=== PATIENT | male | born 1985 | race Caucasian/White ===

== ENCOUNTER 2020-08-26 08:10 | Outpatient (REF) | payer SELFPAY ==
[2020-08-26 13:21] LABS: HCT 41.8 % (40.0-50.0); HGB 13.9 g/dL (13.5-17.5); MCH 30.8 pg (27.0-33.0); MCHC 33.3 % (32.0-36.0); MCV 92.7 fL (80-95); MPV 13.1 fL (8.0-11.0); Platelet Count 232 10^3/uL (130-400); RBC 4.51 10^6/uL (4.36-5.78); RDW 11.9 % (11.8-14.1); RDW-SD 40.2 fL; WBC 5.22 10^3/uL (4.4-10.8)
[2020-08-26 13:38] LABS: ALT 61 U/L (16-63); AST 30 U/L (15-37); Albumin 3.8 g/dL (3.4-5.0); Alkaline Phosphatase 92 U/L (46-116); Anion Gap 7.3 mmol/L (3-11); BUN 14 mg/dL (7-18); Bilirubin, Total 0.4 mg/dL (0.2-1.0); CO2 28.7 mmol/L (21.0-32.0); CREATININE 0.9 mg/dL (0.70-1.30); Calcium 9.5 mg/dL (8.5-10.1); Calculated LDL 137 mg/dL (<100); Chloride 103 mmol/L (98-107); Cholesterol 215 mg/dL (<200); Glucose 115 mg/dL (74-106); HDL Cholesterol 33 mg/dL (40-60); Potassium 4.7 mmol/L (3.5-5.1); Sodium 139 mmol/L (136-145); TSH (W/Ref FT4) 1.11 uIU/mL (0.36-3.74); Total Protein 7.6 g/dL (6.4-8.2); Triglyceride 229 mg/dL (<150)
[2020-08-26 13:46] LABS: Hemoglobin A1C 6.2 % (<5.7)
== END 2020-08-26 08:11 | disposition home or self-care (01) ==
LOC: NCHCN 08:10
PROVIDERS: PCP Internal Medicine; Visit Provider Family Medicine
DX: Z00.00 Encounter for general adult medical examination without abnormal findings (principal); I10 Essential (primary) hypertension; E78.5 Hyperlipidemia, unspecified; E66.9 Obesity, unspecified
CPT/HCPCS: 80053; 80061; 85027; 83036; 84443

== ENCOUNTER 2021-09-09 11:13 | Emergency (ER) | payer SELFPAY ==
[2021-09-09 11:21] VITALS: BP 145/102; PULSE 69; RESP 16; TEMP 36.8; O2SAT 99
--- NOTE | 2021-09-09 12:15 | ED.GENADUL_ITS ---
Discharge Plan Disposition Patient Disposition: HOME Condition: Stable Discharge Details Clinical Impression: Laceration of finger of right hand, Multiple lacerations Primary Care Provider: Hubert Molina ED Provider: Le Barry Home Meds and New Rx's Prescriptions: New cephalexin 500 mg capsule 500 mg PO TID 5 Days Qty: 15 0RF Discharge Instructions Instructions: Finger Laceration (ED) Additional Instructions: Keep wound clean and dry. Cover wound with bandage if risk of contamination. Otherwise you can keep the wound open to air if resting at home to allow edges to dry and heal. A prescription for antibiotics has been sent electronically to your pharmacy to take as directed until finished. Return to the emergency department in 7 to 10 days for suture removal. Return immediately to the emergency department if you develop any worsening or new concerning symptoms such as fever, increased redness, pain or swelling. Discharge Data Discharge Physician: Le Barry Medical Decision Making 36-year-old [id number] male presents with right finger laceration sustained while using a chainsaw at home prior to arrival. Patient has 2 cm linear with jagged edges lacerations noted to the palmar aspect of the base of the second and fifth fingers which extends through the dermis. There is no obvious exposed tendon or nerve involvement. He is otherwise neurovascular intact without motor. He also has skin tears noted to the palmar surfaces of the third and fourth fingers. Advised patient to obtain x-ray to rule out fracture or foreign body but he declined stating he does not have insurance and would rather not incur the cost. Risks of and disability due to missed or incomplete diagnoses and patient understands and demonstrates capacity make decisions. His fingers were anesthetized with local anesthesia and closed with nylon sutures. Area was dressed with bacitracin and nonadherent dressing. He was given a a tetanus and prophylactic antibiotics. Advised to return to the ED in 7 to 10 days for suture removal. Usual and customary return precautions given prior to discharge. Medical Records Medical records reviewed: Yes I reviewed the patient's medical records. HPI General Mode of arrival: ambulatory . Date/Time Provider Initiated Documentation: 09/09/21 11:31 . Limitations to Documentation: no limitations . Information obtained by: patient . HPI Narrative: Patient is a 36-year-old male presents with laceration to his right hand while using a chainsaw at home prior to arrival. Patient states he is left-handed and he was using a chainsaw which cut through his right second through fifth fingers. He is unsure of his tetanus status. He denies any other injuries. Related Data Home Medications Medication Instructions Recorded Confirmed cephalexin 500 mg capsule 500 mg PO TID 5 days #15 caps 09/09/21 Previous Rx's Medication Instructions Recorded cephalexin 500 mg capsule 500 mg PO TID 5 days #15 caps 09/09/21 Allergies Allergy/AdvReac Type Severity Reaction Status Date / Time pollen extracts Allergy Intermediate Unverified 09/09/21 11:24 General Stated Complaint: Laceration DANNY: 3 Review of Systems All systems reviewed & are unremarkable except as noted in HPI and below Constitutional Constitutional: Denies chills, Denies excessive sweating, Denies fatigue, Denies fever(s), Denies weakness and Denies weight loss Eyes Eyes: Reports system reviewed and no additional complaints, except as documented and Denies blurry vision ENT Ears, Nose, Mouth, and Throat: Denies vertigo, Denies dizziness, Denies otalgia, Denies nasal congestion, Denies sore throat and Denies throat swelling Cardiovascular Cardiovascular: Denies chest pain, Denies syncope, Denies rapid heart rate and Denies dyspnea Respiratory Respiratory: Denies chest congestion, Denies cough, Denies pain on inspiration and Denies dyspnea Gastrointestinal Gastrointestinal: Denies abdominal pain, Denies diarrhea and Denies vomiting Genitourinary Genitourinary: Denies hematuria, Denies dysuria and Denies flank pain Musculoskeletal Musculoskeletal: Denies back pain and Denies joint swelling Integumentary/Breasts Skin/Breast: Denies lesions and Denies rash Neurologic Neurologic: Denies behavioral changes, Denies confusion, Denies vertigo, Denies dizziness, Denies syncope, Denies localized weakness and Denies weakness Psychiatric Psychiatric: Denies behavioral changes, Denies confusion and Denies depression Endocrine Endocrine: Denies excessive sweating and Denies fatigue Hematologic/Lymphatic Hematologic/Lymphatic: Denies easy bruising and Denies lymphadenopathy Allergic/Immunologic Allergic/Immunologic: Denies throat swelling PFSH All Active Problems (Updated 09/09/21 @ 14:01 by Le Barry DO) Laceration of finger of right hand (Acute) Multiple lacerations (Acute) Medical History (Updated 09/09/21 @ 14:01 by Le Barry DO) HTN (hypertension) Surgical History (Updated 09/09/21 @ 12:15 by Le Barry DO) No significant past surgical history Social History Smoking/Tobacco Use Status: Never Smoking risk assessment performed?: Yes Substance use type: does not use Do you feel safe at home: Yes Do you feel safe in your relationship?: Yes Exam Const General: cooperative and healthy appearing Orientation: alert, awake and oriented x3 HENMT Head: normal to inspection Ears: hearing grossly normal bilaterally, external ears normal and TM's normal bilaterally General nose exam: external nose normal Face and sinus: normal facial exam Mouth: oral mucosae normal Teeth and gingiva: dentition normal Throat: posterior oropharynx normal Eyes General: appearance normal, both eyes and all related structures Eyelids: eyelids normal Pupils: PERRL EOM: EOM intact bilaterally Neck Neck: normal visual inspection Lymphatic: no lymphadenopathy noted Chest Chest: normal inspection of the chest Resp Effort & Inspection: normal respiratory effort and able to speak in complete sentences Auscultation: clear to auscultation bilaterally Cardio Rate: regular rate Rhythm: regular rhythm GI Inspection: normal to inspection Palpation: soft, not firm, no guarding, no hepatosplenomegaly, no masses and nontender Auscultation: normal bowel sounds Back/Spine/Pelvis Back: no CVA tenderness Skin General skin exam: no rashes or lesions noted Neuro General: patient alert and patient awake Cognition: normal cognition Speech: speech normal Gait: normal gait Motor: muscle tone normal throughout Sensory Exam: no sensory deficits noted Extrem General: normal to inspection, full ROM and capillary refill normal Hand/finger images: 1. 2 cm linear laceration with jagged edges and skin tears on palmar surface of base of 2nd finger. 2. 2 cm linear laceration with jagged edges and skin tears on palmar surface of base of fifth finger 3. 1 cm skin tear 4. 1 cm skin tear. Other: No bony deformity noted to fingers of right hand. Psych Appearance: grossly normal Mental Status: mental status grossly normal Speech and Movement: speech and movement normal Affect: normal affect Thought Process: normal Course Vital Signs Vital signs: Vital Signs Temperature 98.2 F 09/09/21 11:21 Pulse 69 09/09/21 11:21 Respiratory Rate 16 09/09/21 11:21 Blood Pressure 145/102 H 09/09/21 11:21 Pulse Oximetry 99 09/09/21 11:21 Temperature 98.2 F 09/09/21 11:21 Pulse 69 09/09/21 11:21 Respiratory Rate 16 09/09/21 11:21 Respiratory Effort 09/09/21 11:24 Blood Pressure 145/102 H 09/09/21 11:21 Pulse Oximetry 99 09/09/21 11:21 Pain Level 4 09/09/21 11:24 Procedures Laceration Laceration 1: Site: hand (2nd finger) Side (If applicable): right Size (cm): 2 Description: linear Depth: simple, single layer Local Anesthetic: Lidocaine 1% Amount of anesthesia used (mL): 9 Pre-repair: wound explored, irrigated extensively and deep structures intact Skin layer closed with: nylon Size (cm): 5-0 Number of sutures: 6 Technique: simple, interrupted Laceration 2: Site: hand (5th finger) Side (If applicable): right Size (cm): 8 Description: linear Depth: simple, single layer Local Anesthetic: Lidocaine 1% Amount of anesthesia used (mL): 8 Pre-repair: wound explored, irrigated extensively and deep structures intact Skin layer closed with: nylon Size (cm): 5-0 Number of sutures: 4 Technique: simple, interrupted
[2021-09-09] MEDS: Povidone-Iodine Soln. 118 ML BTL (12:53)
[2021-09-09] MEDS: Cephalexin 500 MG CAP PO (14:07)
[2021-09-09 14:15] VITALS: BP 132/80; PULSE 62; RESP 16; O2SAT 99
[2021-09-09] MEDS: Cephalexin 500 MG CAP, 2 CAPS/BTL PO (14:16)
== END 2021-09-09 14:16 | disposition home or self-care (01) ==
PROVIDERS: Emergency Provider Physician Assistant; PCP Internal Medicine
DX: S61.210A Laceration without foreign body of right index finger without damage to nail, initial encounter (principal); W29.3XXA Contact with powered garden and outdoor hand tools and machinery, initial encounter
CPT/HCPCS: 12004; 90471